=== PATIENT | male | born 1945 | race Caucasian/White ===

== ENCOUNTER 2021-01-24 17:16 | Emergency (ER) | payer MEDICARE, SELFPAY ==
--- NOTE | 2021-01-24 17:24 | XRR_ITS ---
PROCEDURE INFORMATION: Exam: XR Right Ankle Exam date and time: 01/24/2021 5:50 PM Age: 75 years old Clinical indication: Pain and injury or trauma; Fall; Blunt trauma; Ankle; Right TECHNIQUE: Imaging protocol: XR Right ankle. Views: 3 or more views. COMPARISON: No relevant prior studies available. FINDINGS: Bones/joints: The ankle bones are intact and in normal alignment. Mildly displaced calcaneus fracture. Soft tissues: Circumferential soft tissue swelling. XR/XR ankle RT min 3V* [id number] IMPRESSION: 1. No right ankle fracture identified. 2. Right calcaneus fracture.
--- NOTE | 2021-01-24 17:24 | XRR_ITS ---
PROCEDURE INFORMATION: Exam: XR Right Foot Exam date and time: 01/24/2021 5:52 PM Age: 75 years old Clinical indication: Pain and injury or trauma; Fall; Blunt trauma; Foot; Right TECHNIQUE: Imaging protocol: XR Right foot. Views: 3 or more views. COMPARISON: No relevant prior studies available. FINDINGS: Bones/joints: Mildly displaced comminuted fracture through the mid body of the calcaneus with probable extension into the subtalar joint. The other bones appear intact and in normal alignment. Severe degenerative changes of the 1st MTP joint. Soft tissues: Normal. XR/XR foot RT min 3V* [id number] IMPRESSION: Comminuted calcaneus fracture. This can be further evaluated with CT imaging.
[2021-01-24 17:33] VITALS: BP 154/90; PULSE 109; RESP 16; TEMP 36.7; O2SAT 97; BMI 21.4
--- NOTE | 2021-01-24 17:33 | W.ED.LOWEXIN ---
Documented by User: NAT Jeff 01/24/21 18:42 HPI - Extremity Injury (Lower) General: Chief Complaint: Extremity Injury, Lower Stated Complaint: FALL (MONDAY) R FOOT/ANKLE INJURY Time Seen by Provider: 01/24/21 17:31 Source: patient Mode of arrival: ambulatory Limitations: no limitations History of Present Illness: HPI Narrative: 75-year-old male patient comes in today for complaints of swelling and bruising to the right ankle. Patient last week stepped down from a ladder and hurt his right foot and ankle. His son brought him in today for concerns of injury. Patient appears well. Patient reports minimal pain but difficulty with walking. Patient has been using a walker for ambulation. MD complaint: ankle injury Onset (ago): day(s) (7) Type of Injury: unknown Place: home Severity: mild Relieving factors: rest Exacerbating factors: weight bearing Context: fall Associated symptoms: Reports swelling and other (Bruising) Other symptoms: none Review of Systems General: Reports: 10 or more systems reviewed and unremarkable except in HPI and below Musc: Reports: other (Right ankle injury) PFS ED PFSH: Medical History (Updated 01/24/21 @ 18:40 by NAT Jeff) Seizure Family History (Updated 08/24/20 @ 14:31 by India Ramos LPN) Other Hyperlipidemia Denies family history of Diabetes CAD (coronary artery disease) Clotting disorder Dementia Psychiatric illness Chronic kidney disease (CKD) Suicide Anesthesia complication Bleeding disorder Family history of premature coronary artery disease Lung disease Cancer Hypertension Stroke Social History Smoking and tobacco status: never smoked Second hand smoke exposure: No Alcohol intake: never Physical Exam Const: COMMON NORMALS: no acute distress and patient oriented x3 GENERAL APPEARANCE: cooperative HENMT: COMMON NORMALS: normocephalic and Normal external nose present HEAD & SCALP: normal to inspection and normocephalic NOSE: Normal external nose present MOUTH: Normal oral and palatal mucosa present Eye: GENERAL EYE: appearance normal, both eyes and all related structures Neck/C-Spine: COMMON NORMALS: full ROM Chest: COMMONS NORMALS: normal inspection of the chest Resp: COMMON NORMALS: normal respiratory effort EFFORT & INSPECTION: Yes able to speak in complete sentences Cardio: COMMON NORMALS: regular rate and regular rhythm RATE: regular rate RHYTHM: regular rhythm GI: COMMON NORMALS: non-tender Back/Pelvis: COMMON NORMALS: thoracic and lumbar spine normal to inspection Extremity: COMMON NORMALS: normal to inspection NARRATIVE EXTREMITY EXAM: Patient has joint swelling of the right ankle, patient has ecchymosis to the distal foot. Pulses are intact. Sensation is normal. Neuro: COMMON NORMALS: patient oriented x3 and moves all extremities Psych: COMMON NORMALS: mental status grossly normal and cooperative Skin: COMMON NORMALS: no rashes or lesions noted GENERAL SKIN EXAM: no rashes or lesions noted Course Vital Signs: Vital signs: Vital Signs Temperature 98.0 F 01/24/21 17:33 Pulse Rate 83 01/24/21 17:42 Respiratory Rate 16 01/24/21 17:42 Blood Pressure 154/90 01/24/21 17:33 Pulse Oximetry 97 01/24/21 17:42 MDM - Extremity Injury (Lower) MDM Narrative: Medical decision making narrative: Patient comes in today for an injury that occurred 7 days ago. Patient has some heel discomfort and some bruising that has worsened over the last week. His son brought him in. On exam patient has good pulses to the foot. Patient does have some ecchymosis to the dorsal and sole of the foot. Patient has tenderness in the posterior ankle. Differential diagnosis includes fracture of the foot, heel, ankle, sprain, contusion. X-ray notes a nondisplaced comminuted heel fracture that was noted by radiology. Reviewed with Dr. Martinez who recommended posterior splint and follow-up with Dr. Lynn. Reviewed this with son and patient who agreed to plan. Discharge Plan Discharge Patient Disposition: Home Clinical Impression: Calcaneus fracture, right Qualifiers: Encounter type: initial encounter Calcaneus location: unspecified portion of calcaneus Fracture type: closed Fracture alignment: nondisplaced Qualified Code(s): S92.001A - Unspecified fracture of right calcaneus, initial encounter for closed fracture Condition: Stable Prescriptions: No Action carbamazepine [Epitol] 200 mg tablet 200 mg PO BID RF: 0 levetiracetam [Keppra] 500 mg tablet 500 mg PO BID RF: 0 Discharge Orders: Discharge ED (Routine); Ordered 01/24/21 Ordered By: Noam Valencia Referrals: Horace Salas MD [Primary Care Provider] - Discharge Diet: Usual diet Discharge Activity: Limit activity as instructed Patient Instructions: Calcaneal Fracture (ED), Opioid Safety Activity Restrictions/Additional Instructions: Limit weightbearing activity to the foot. Follow-up with dock guard, Dr. Lynn, office for further treatment. Elevate foot as much as possible. Use acetaminophen as needed for pain. Return to emergency department as needed for further concerns. Coding Level of Care Code ED Psychological Science Professor for Chg Fwd Exam Comprehensive Documented by User: Shabbir Martinez, 01/25/21 03:48 HPI - Extremity Injury (Lower) General: Chief Complaint: Extremity Injury, Lower Stated Complaint: FALL (MONDAY) R FOOT/ANKLE INJURY Time Seen by Provider: 01/24/21 17:31 [facility] ED PFSH: Medical History (Updated 01/24/21 @ 18:40 by NAT Jfef) Seizure Family History (Updated 08/24/20 @ 14:31 by India Ramos LPN) Other Hyperlipidemia Denies family history of Diabetes CAD (coronary artery disease) Clotting disorder Dementia Psychiatric illness Chronic kidney disease (CKD) Suicide Anesthesia complication Bleeding disorder Family history of premature coronary artery disease Lung disease Cancer Hypertension Stroke Social History Smoking and tobacco status: never smoked Second hand smoke exposure: No Alcohol intake: never Course Vital Signs: Vital signs: Vital Signs Temperature 98.0 F 01/24/21 17:33 Pulse Rate 83 01/24/21 17:42 Respiratory Rate 16 01/24/21 17:42 Blood Pressure 154/90 01/24/21 17:33 Pulse Oximetry 97 01/24/21 17:42 MDM - Extremity Injury (Lower) MDM Narrative: Medical decision making narrative: 75-year-old male originally seen by NAT Bee. I agree with his history, evaluation, and treatment. This patient sustained a comminuted right calcaneus fracture that was nondisplaced. I reviewed the films. We reviewed treatment together. He will follow up with podiatry. Discharge Plan Discharge Patient Disposition: Home Clinical Impression: Calcaneus fracture, right Qualifiers: Encounter type: initial encounter Calcaneus location: unspecified portion of calcaneus Fracture type: closed Fracture alignment: nondisplaced Qualified Code(s): S92.001A - Unspecified fracture of right calcaneus, initial encounter for closed fracture Condition: Stable Prescriptions: No Action carbamazepine [Epitol] 200 mg tablet 200 mg PO BID RF: 0 levetiracetam [Keppra] 500 mg tablet 500 mg PO BID RF: 0 Discharge Orders: Discharge ED (Routine); Ordered 01/24/21 Ordered By: Noam Valencia Referrals: Horace Salas MD [Primary Care Provider] - Discharge Diet: Usual diet Discharge Activity: Limit activity as instructed Patient Instructions: Calcaneal Fracture (ED), Opioid Safety Activity Restrictions/Additional Instructions: Limit weightbearing activity to the foot. Follow-up with dock guard, Dr. Lynn, office for further treatment. Elevate foot as much as possible. Use acetaminophen as needed for pain. Return to emergency department as needed for further concerns. Coding Level of Care Code ED Psychological Science Professor for Vani Fwhuey Exam Comprehensive
[2021-01-24 17:42] VITALS: PULSE 83; RESP 16; O2SAT 97
--- NOTE | 2021-01-25 09:26 | DCPLANNER ---
marketing manager had message to schedule a follow up appointment for patient with ortho. marketing manager called the ortho clinic, spoke with Luisa, gave clinic patients information. marketing manager was told that patients information would be printed and reviewed. Clinic will call patient with appointment information.
--- NOTE | 2021-01-27 10:32 | DCPLANNER ---
Patient had a follow up appointment scheduled for 01.26.[address] Leavitt, at ortho - patient did attend appointment.
== END 2021-01-24 19:36 | disposition home or self-care (01) ==
PROVIDERS: Emergency Provider Nurse Practitioner Family; PCP Family Medicine
DX: S92.001A Unspecified fracture of right calcaneus, initial encounter for closed fracture (principal); X58.XXXA Exposure to other specified factors, initial encounter
CPT/HCPCS: 73610; 73630

== ENCOUNTER → 2021-02-16 10:39 | Outpatient (BNVA) | payer MEDICARE, SELFPAY | PROVIDERS: PCP Family Medicine; Visit Provider Orthopaedic Surgery | DX: S92.001A Unspecified fracture of right calcaneus, initial encounter for closed fracture (principal) | CPT/HCPCS: 73650 ==

== ENCOUNTER 2021-07-16 08:01 | Outpatient (CLI) | payer MEDICARE, SELFPAY ==
--- NOTE | 2021-07-16 08:11 | CT_ITS ---
WS: [id number] CT HEAD TECHNIQUE: Noncontrast and contrast-enhanced CT of the head. CLINICAL INFORMATION: ALZHELMER'S DISEASE,ARTERIOVENOUS MALFORMATION OF CEREBRAL V COMPARISON: None. DLP: 2116.[address] scans at [facility] use at least one of these dose optimization techniques: automated e xposure control; mA and/or kV adjustment per patient size (includes targeted exams where dose is matc hed to clinical indication); or iterative reconstruction. FINDINGS: Prior postoperative changes right parietal craniotomy with aneurysm clipping. Encephalomalacia involv ing the right parietal lobe extending into the right occipital lobe. Ex vacuo dilatation posterior ri ght lateral ventricle and occipital horn. Peripherally calcified cystic lesions along the resection c avity likely cystic encephalomalacia or incidental neuroglial cysts. Serpiginous calcified enhancing AVM nidus in the right lateral temporal lobe with prominent feeding v essels and draining veins. Prominent feeding vessel extends to the area of aneurysm clipping medial temporal lobe. No evidence of recurrent aneurysm. Moderate small vessel changes. Moderate parenchymal volume loss. Mild ex vacuo dilatation right tempo ral horn. Paranasal sinuses and mastoid air cells well aerated. CT/CT head wo/w con [id number] IMPRESSION: 1. 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 Ex vacuo di latation right lateral ventricle and occipital horn. 2. 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 No visualized recurrent aneurysm. 3. 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 This can be further evaluated with conventional angiography for better anatomic detail. 4. Moderate small vessel changes with moderate parenchymal volume loss.
[2021-07-16] MEDS: iohexol 300 mg/mL 100 mL Btl IV (08:38)
== END 2021-07-16 08:02 | disposition home or self-care (01) ==
PROVIDERS: PCP Family Medicine; Visit Provider Psychiatry & Neurology Neurology
DX: G30.9 Alzheimer's disease, unspecified (principal); H90.3 Sensorineural hearing loss, bilateral; Z87.898 Personal history of other specified conditions; Q26.2 Total anomalous pulmonary venous connection
CPT/HCPCS: 70470; Q9967